=== PATIENT | female | born 1990 | race Caucasian/White ===

== ENCOUNTER → 2017-01-25 | Outpatient (CLI) | payer OTHER ==
[~2017-01-25] MED LIST: COLACE 100MG C100 MG PO; IBUPROFEN600 MG PO; NORCO 5-325 TA1 EACH PO
== END ==
LOC: LAB 09:44
DX: O20.0 Threatened abortion (principal); Z3A.00 Weeks of gestation of pregnancy not specified
CPT/HCPCS: 36415; 84702

== ENCOUNTER → 2017-01-27 | Outpatient (CLI) | payer OTHER | LOC: LAB 09:31 | DX: Z32.00 Encounter for pregnancy test, result unknown (principal) | CPT/HCPCS: 36415; 84702 ==

== ENCOUNTER → 2017-01-29 | Outpatient (CLI) | payer OTHER | LOC: LAB 12:13 | DX: Z32.00 Encounter for pregnancy test, result unknown (principal) | CPT/HCPCS: 36415; 84702 ==

== ENCOUNTER → 2020-08-24 | Outpatient (CLI) | payer OTHER ==
[~2020-08-24] MED LIST changes: +FEOSOL325 MG PO; +KEFLEX CAP 500500 MG PO; +PRENATAL VITAM1 EAC8 PO; +ZANTAC150 MG PO; +ZOFRAN4 MG PO
== END ==
LOC: EMI 14:36
DX: G37.9 Demyelinating disease of central nervous system, unspecified (principal); R20.2 Paresthesia of skin; H81.399 Other peripheral vertigo, unspecified ear
CPT/HCPCS: 70553; A9577